=== PATIENT | female | born 1970 | race Caucasian/White ===

== ENCOUNTER → 2021-09-26 08:33 | Outpatient (POV) | payer OTHER, SELFPAY | PROVIDERS: Visit Provider Dermatology | DX: Z00.00 Encounter for general adult medical examination without abnormal findings (principal) ==

== ENCOUNTER 2024-09-05 07:45 | Emergency (ER) | payer BC, SELFPAY ==
[2024-09-05 07:53] VITALS: BP 181/119; PULSE 81; RESP 20; TEMP 36.8; O2SAT 98; BMI 33.0
[2024-09-05] MEDS: diphenhydrAMINE 50MG CAPSULE 50 MG PO (08:14)
[2024-09-05] MEDS: predniSONE 20MG TAB 40 MG PO (08:14)
--- NOTE | 2024-09-05 08:19 | ED_ITS ---
Discharge Plan Disposition Patient Disposition: Home, Self-Care Prescriptions Prescriptions: New prednisone 20 mg tablet 40 mg PO BID 5 Days Qty: 20 0RF diphenhydramine HCl [Allergy (diphenhydramine)] 25 mg capsule 50 mg PO Q8H PRN (Reason: itching) Qty: 20 0RF cephalexin 500 mg capsule 500 mg PO BID 7 Days Qty: 14 0RF Referrals Follow up/Referrals: Sonal Zhong [Primary Care Provider] - See instructions Activity Restrictions/Add. Instructions Additional Instructions/Restrictions: You were seen and evaluated in the emergency department for swelling from a wasp sting. You can take 50 mg of Benadryl every 8 hours to help with itching and some swelling. You are also being sent with 5 days of steroids. Due to some redness in the area, we will also send you with a course of antibiotics. You can also take Tylenol and ibuprofen to help with pain. Follow-up with your primary care physician in 3 days if symptoms do not improve. If you develop any new or worsening symptoms, such as shortness of breath, vomiting, diarrhea or shortness of breath, this may be a sign of a severe allergic reaction. Call 911 immediately and come to the emergency department. Clinical Impressions Clinical Impression: Localized swelling on right hand, Accidental wasp sting, Cellulitis of hand Print Language Print Language: Salvadorean Discharge ED Provider: Naresh Qiu Adult HPI General Chief complaint: Extremity Injury, Upper Stated complaint: swelling R hand-Wasp sting-09/04 1000 Time Seen by Provider: 09/05/24 07:54 Mode of Arrival: Ambulatory Source of Information: Patient Description of Symptoms (Recalled from ER Triage Doc. by RN): pt was stung by wasp yesterday on right hand and now entire hand and wirst is swollen red and tender to touch and is going up the forearm History of Present Illness HPI narrative: Amy Pressley is a 54-year-old female with no significant past medical history who presents to the emergency department for complaints of right hand swelling after a wasp sting. Patient states that yesterday she was attempting to open a window when a wasp stung her right second finger. Since then, she has had pain and swelling in her right hand that is extending up her forearm as of this morning. She states that she took 1 dose of Benadryl yesterday due to itching but it did not relieve her symptoms. She has not had any shortness of breath or vomiting. She states that she had a wasp sting in the past but did not swell up this severe. She reports some redness to the hand as well as extending up her forearm slightly. Related Data Previous Rx's ?Medication ?Instructions ?Recorded cephalexin 500 mg capsule 500 mg PO BID 7 days #14 caps 09/05/24 diphenhydramine HCl 25 mg capsule 50 mg (2 x 25 mg) PO Q8H PRN 09/05/24 (Allergy (diphenhydramine)) itching #20 caps prednisone 20 mg tablet 40 mg (2 x 20 mg) PO BID 5 days 09/05/24 #20 tabs Allergies Allergy/AdvReac Type Severity Reaction Status Date / Time No Known Allergies Allergy Verified 09/05/24 08:03 [facility] Disclaimer: The information contained in this section may have been updated after the patient was seen, as this information can be updated by other users. Social History Smoking Status: Never smoker alcohol intake: never current occupational status: other Travel in the last 8 weeks: None ROS Obtained: Yes Systems reviewed as appropriate & no additional complaints except as documented Physical Exam General General appearance: alert and in no apparent distress Head Head exam: atraumatic Eye Eye exam: Present normal appearance ENT ENT exam: Present normal external ear exam Neck Neck exam: Present full ROM Chest Chest inspection: Present symmetric chest wall rise Respiratory Respiratory exam: Present normal lung sounds bilaterally; Absent respiratory distress Cardiovascular Cardiovascular exam: Present regular rate and normal rhythm Abdominal Exam Abdominal exam: Present soft; Absent tenderness or guarding Extremities Exam Extremities exam: Present normal inspection Back Exam Back exam: Present normal inspection Neurological Exam Neurological exam: Present alert and oriented X3 Psychiatric Psychiatric exam: Present normal affect Skin Skin exam: Present warm, dry, rash and other (Diffuse swelling to the right hand and extends up to the mid forearm. Small puncture wound over the dorsum of the right second finger. A 2+ radial pulse. Sensation intact throughout. Full range of motion of the second digit with flexion and extension. Some mild erythema at the sting site that e) Medical Decision Making Medical Records Screening: Per USPSTF and CDC recommendations, given the prevalence of disease in our region, it is our hospital?s policy to screen for HIV and viral Hepatitis for all patients aged 18 and over and those with ongoing risk factors. Chucho Inquiry Pt receiving controlled substance: No Vital Signs: 09/05/24 07:53 Temperature 98.2 F Temperature Source Oral Pulse Rate [Left Radial] 81 Respiratory Rate 20 Blood Pressure [Right Arm] 181/119 H Blood Pressure Mean [Right Arm] 139 02 Sat by Pulse Oximetry 98 Oxygen Delivery Method Room Air Orders (Tests/Meds): ED MEDICATIONS Generic Name Dose Route Start Last Admin Trade Name Real PRN Reason Stop Dose Admin Diphenhydramine HCl 50 mg 09/05/24 08:01 09/05/24 08:14 Diphenhydramine 50mg Capsule PO 09/05/24 08:02 50 mg ONCE ONE Administration Prednisone 40 mg 09/05/24 08:01 09/05/24 08:14 Prednisone 20mg Tab PO 09/05/24 08:02 40 mg ONCE ONE Administration Medical Decision Narrative: Amy Pressley is a 54-year-old female with no significant past medical history who presents to the emergency department for complaints of pain and swelling and redness to her right hand after a wasp sting yesterday. She states that the swelling is extending up her forearm since it began. She does not have any other symptoms, such as shortness of breath or vomiting or diarrhea I does not meet criteria for anaphylaxis. On arrival, patient is hypertensive with blood pressure 181/119, heart rate within normal limits, breathing comfortably on room air with oxygen saturation at 98% SpO2. Afebrile. Physical exam, stated above, revealed swelling diffusely to the right hand with a small puncture wound over the dorsum of the right second digit. The swelling extends up to the mid forearm. There is some redness around the sting site that extends up the forearm slightly. She has full range of motion of her fingers and no point tenderness. No evidence of flexor tenosynovitis on physical exam. Piyush hansen has 2+ radial pulses. She does not have any wheezing or shortness of breath. No other rashes are appreciated. Differential diagnosis includes, but is not limited to: Localized allergic reaction, lymphedema, histamine reaction, cellulitis, low concern for anaphylaxis given patient does not have any other symptoms other than localized swelling and itching. Lab work was considered, however patient symptomatology is most consistent with an allergic local reaction and lab work would not change ED management. Will administer oral Benadryl and prednisone here. Will discharge on a course of oral prednisone as well as 50 mg of oral Benadryl every 8 hours at home. Given slight redness in the area, will also discharge with course of Keflex out of an abundance of caution. She was given return precautions to return to the emergency department if there is any evidence of anaphylaxis, such as shortness of breath, vomiting or diarrhea. She was also directed to follow-up with her primary care physician. All questions were answered. She demonstrated understanding and was in agreement this plan. She was then discharged from the emergency department in stable condition. Critical Care Critical Care Time Critical Care Time: No
[2024-09-05 08:30] VITALS: BP 144/100; PULSE 78; RESP 20; TEMP 36.7; O2SAT 98
== END 2024-09-05 08:33 | disposition home or self-care (01) ==
PROVIDERS: Emergency Provider Student in an Organized Health Care Education/Training Program; PCP Nurse Practitioner Family
DX: L03.113 Cellulitis of right upper limb (principal); R22.31 Localized swelling, mass and lump, right upper limb; S60.561A Insect bite (nonvenomous) of right hand, initial encounter; W57.XXXA Bitten or stung by nonvenomous insect and other nonvenomous arthropods, initial encounter
CPT/HCPCS: 99283

== ENCOUNTER 2024-11-23 16:42 | Outpatient (CLI) | payer BC, SELFPAY ==
--- OUTSIDE RECORDS SUMMARY | 2024-09-24 07:48 | XMS_ITS | Encounter Summary ---
Author Organization Healthcare Address [address] [place] [address] Care Team Providers Care Industrial Gas Serv[employer] Supervisor Name Role Phone Sonal Zhong APRN Primary Care Provider [phone] Encounter Details Date Type Department Care Team (Latest Contact Info) Description 09/24/2024 7:48 AM EDT - 09/24/2024 11:59 PM EDT Hospital Encounter [facility] [address] [id number] Encounter for screening mammogram for malignant neoplasm of breast Discharge Disposition: Home or Self Care Social History Tobacco Use Types Packs/Day Years Used Date Smoking Tobacco: Never Passive Smoke Exposure: Never Smokeless Tobacco: Never Alcohol Use Standard Drinks/Week Comments Not Currently 0 (1 standard drink = 0.6 oz pur e alcohol) Humiliation, Afraid, Rape, and Kick questionnair e Answer Date Recorded Within the last year, have y ou been afraid of your partner or ex-partner? No 09/02/2024 Within the last year, have y ou been humiliated or emotionally abused in other ways by your partner or ex-partner? No Within the last year, have y ou been kicked, hit, slapped, or otherwise physically hurt by your partner or ex-partner? No 09/02/2024 Within the last year, have y ou been raped or forced to have any kind of sexual activity by your partner or ex-partner? No 09/02/2024 Social Connection and Isolation Panel Answer Date Recorded In a typical week, how many times do you talk on the phone with family, friends, or neighbors? More than three times a week 02/17/2021 How often do you get togethe r with friends or relatives? Never 02/17/2021 How often do you attend chur ch or anabaptist services? 1 to 4 times per year 02/17/2021 Do you belong to any clubs o r organizations such as jainism groups, unions, fraternal or athletic groups, or school groups? No 02/17/2021 How often do you attend meet ings of the clubs or organizations you belong to? Never 02/17/2021 Are you , , di vorced, , never , or living with a partner? 02/17/2021 AUDIT-C Answer Date Recorded Q1: How often do you have a drink containing alc ohol? Monthly or less 02/17/2021 Q2: How many drinks containi ng alcohol do you have on a typical day when you are drinking? 1 or 2 02/17/2021 Q3: How often do you have si x or more drinks on one occasion? Never 02/17/2021 Overall Financial Resource Strain (CARDIA) Answe r Date Recorded How hard is it for you to pa y for the very basics like food, housing, medical care, and heating? Not hard at all 02/17/2021 PHQ-2 Answer Date Recorded Patient Health Questionnaire-2 Score 0 09/02/2024 [facility] Occupational Stress Questionnaire Answer Date Recorded Do you feel stress - tense, restless, nervous, or anxious, or unable to sleep at night because your mind is troubled all the time - these days? Not at all 02/17/2021 Exercise Vital Sign Answer Date Recorde d On average, how many days pe r week do you engage in moderate to strenuous exercise (like a brisk walk)? 4 days 02/17/2021 On average, how many minutes do you engage in exercise at this level? 20 min 02/17/2021 Hunger Vital Sign Answer Date Recorded Within the past 12 months, y ou worried that your food would run out before you got the money to buy more. Never true 09/03/19 25 Within the past 12 months, t he food you bought just didn't last and you didn't have money to get more. Never true 09/02/2024 PRAPARE - Transportation Answer Date Re corded In the past 12 months, has l ack of transportation kept you from medical appointments or from getting medications? No 08/18 In the past 12 months, has l ack of transportation kept you from meetings, work, or from getting things needed for daily living? No 09/02/2024 Housing Stability Vital Sign Answer Jignesh e Recorded In the last 12 months, was t here a time when you were not able to pay the mortgage or rent on time? No 06/11/2023 In the last 12 months, how many places have you lived? 1 06/11/2023 In the last 12 months, was t here a time when you did not have a steady place to sleep or slept in a long term (including now)? No 06/11/2023 PHQ-9 Answer Date Recorded Patient Health Questionnaire-9 Score 0 09/02/2024 Housing Stability Vital Sign Answer Jignesh e Recorded In the last 12 months, was t here a time when you were not able to pay the mortgage or rent on time? No 09/02/2024 In the past 12 months, how m any times have you moved where you were living? 0 09/02/2024 At any time in the past 12 m [facility], were you homeless or living in a long term (including now)? No 09/02/2024 Utilities Answer Date Recorded In the past 12 months has th e [employer], gas, oil, or water company threatened to shut off services in your home? No 09/02/2024 PHQ-2A Answer Date Recorded Patient Health Questionnaire-2 Score 0 12/24/2022 Comments No Sex and Gender Information Value Date Recorded Sex Assigned at Female 04/25/2021 8:27 AM EST Legal Sex Female 6:35 PM EDT Gender Identity Female 04/25/2021 8:27 AM EST Sexual Orientation Straight 04/25/2021 8: 27 AM EST documented as of this encounter Medications at Time of Discharge albuterol 108 (90 Base) MCG/ACT inhalerIndications :Mild intermittent asthma without complication Inhale 1 puff every 4 (four) hours as needed for wheezing or shortness of breath. 18 g 11 09/02/2024 fluticasone-salmet inocente (Advair Diskus) 100-50 MCG/ACT diskus inhalerIndications :Mild intermittent asthma without complication Inhale 1 puff 2 (two) times a day. Rinse mouth with water after use to reduce aftertaste and incidence of candidiasis. Do not swallow. 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 90 tablet 3 02/04/2024 documented as of this encounter Plan of Treatment Upcoming Encounters Date Type Department Care Team (Late st Contact Info) Description 02/01/2025 7:00 AM EDT Clinical Support [facility] [address] [place] [address] 02/03/2025 12:40 PM EDT Office Visit [facility] [address] [place] [address] Eva Garcia, DO [address] [facility] [address] [place] [address] 03/01/2025 8:00 AM EDT Appointment [facility] [address] [place] [address] 03/01/2025 10:10 AM EDT Office Visit [facility] [address] [place] [address] Morenita Piedra M, SURVEY SUPERINTENDENT [address] [facility] [address] [place] [address] documented as of this encounter Procedures Procedure Name Priority Date/Time Associated Diagnosis Comments MAMMOGRAPHY BREAST SCREENING TOMOSYNTHESIS BILATERAL Routine 09/24/2024 7:58 AM EDT Encounter for screening mammogram for malignant neoplasm of breast documented in this encounter Results * Mammography Breast Screening Tomosynthesis Bilateral (09/24/2024 7:58 AM EDT) Anatomical Region Laterality Modality Breast Bilateral Mammography Impressions 09/26/2024 9:32 PM EDT No mammographic evidence of malignancy. BI-RADS CATEGORY: Overall: 1 - Negative RECOMMENDATION: - Routine Screening Mammogram in 1 Year. Patient Lifetime Risk Score of Breast Malignancy: A risk score has not been calculated for this patient. This risk assessment is calculated using the Diana Risk Assessment model which may underestimate the lifetime risk of breast malignancy. COMMUNICATION: Computer-aided detection (CAD) and tomosynthesis were utilized by the radiologist in the interpretation of this examination. The results and recommendations will be sent to the patient in a printed lay language version of the imaging report. Narrative 09/26/2024 9:32 PM EDT EXAM: Mammography Breast Screening with Tomosynthesis REASON FOR EXAM: Screening Mammogram HISTORY: Patient is 54 y.o. Hormone history includes control. COMPARISON STUDIES: Compared to: 03/01/2020 Mammography Breast Diagnostic Tomosynthesis Bilateral at [facility] 05/16/2021 Mammography Breast Screening Tomosynthesis Bilateral at [facility] 07/04/2022 Mammography Breast Screening Tomosynthesis Bilateral at [facility] 08/09/2023 Mammography Breast Diagnostic Tomosynthesis Bilateral at [facility] BREAST COMPOSITION: The breasts are heterogeneously dense, which may obscure small masses. FINDINGS: There are no suspicious masses, calcifications, or areas of architectural distortion. us Sonal Zhong APRN IMG BI PROCEDURES Final Resul t documented in this encounter Visit Diagnoses Diagnosis Encounter for screening mammogram for malignant neoplasm of breast documented in this encounter Additional Health Concerns Assessment Noted Time PHQ-9 Depression Total Score: 0 09/03/19 25 7:44 AM EDT A fall risk assessment has been complete d for the patient 02/28/2024 9:13 AM EDT A Body Mass Index follow-up plan has been documented for the patient 09/02/2024 8:10 AM EDT documented as of this encounter Care Teams [employer] Supervisor Relationship Specialty Start Date End Date Sonal Zhong APRN Formerly named [facility] [place] [address] PCP - General Family Medicine 08/29/23 documented as of this encounter
--- OUTSIDE RECORDS SUMMARY | 2024-11-24 07:16 | XMS_ITS | Clinical Summary ---
Author Organization [facility] Address [address] [place] [address] Phone Care Team Providers Care Hem Inspector Name Role Phone Unavailable Primary Care Provider Unavailabl e Allergies No known active allergies Medications albuterol (PROAIR HFA) 90 mcg/actuation Inhl HFA Aerosol InhalerIndications :Asthma, mild intermittent, uncomplicated Inhale 2 Puffs into the lungs every 4 hours as needed. for wheezing 9 g 3 5 Active levothyroxine (SYNTHROID) 150 mcg Oral TabletIndications: Hypothyroidism (acquired) Take 1 Tab by mouth daily. 90 Tab 3 7 Active Cholecalciferol, Vitamin D3, (VITAMIN D3) 5,000 unit Oral Tablet Take by mouth. Reported on 10/19/2016 Active ADVAIR DISKUS 100-50 mcg/dose Inhl Disk with Device INHALE ONE DOSE BY MOUTH ONCE DAILY 60 Each 7 Active ferrous sulfate 325 mg (65 mg iron) Oral Tablet Take 1 Tab by mouth daily. 30 Tab 4 7 Active Active Problems Problem Noted Date Diagnosed Date Alcohol screening 08/06/2016 Overview (08/06/2016): 08/06/16 Alcohol Screening Do you drink? yes Drinks per day? A couple of times per year Most drinks at one sitting? 2 CAGE Ever thought about cutting back? no Ever get annoyed about others asking about your drinking? no Ever feel guilty about your drinking? no Ever need an eye superintendent factory in the morning? no Screening for depression 08/06/2016 Overview (08/06/2016): 08/06/16 Depression Screening: In the past two weeks, how often have you felt down, depressed, or hopeless? None Have you felt little interest or pleasure in doing things? no Mild persistent asthma with acute exacerbation 0 08/06/2016 Overview (08/06/2016): 08/06/16 Usually stable on Advair. Increased use of albuterol and symptoms over past 2 weeks. Iron deficiency 08/06/2016 Health care maintenance 07/20/2015 Overview (08/06/2016): 08/06/16 Preventative Health Measures Communication issues identified? no Depression Screening: In the past two weeks, how often have you felt down, depressed, or hopeless? None Have you felt little interest or pleasure in doing things? no Fall Risk Screening: Have you had 2 or more falls in the past year or any fall with injuries within the past year? no Tobacco Status - (goals: no tobacco) Does patient currenty use tobacco products? History Smoking status Never Smoker Smokeless tobacco Never Used Counseling given: Not Answered Immunizations - (goals: yearly flu shot, one pneumovax (with booster in 5 years if started before age 65), zostavax 60 and over, Tdap/Tetanus every 10 years) Immunization History Administered Date(s) Administered Pneumococcal Conjugate 7 Valent 05/20/2002 Tdap 05/08/2007 Health Maintenance Health Maintenance Topic Date Due Pneumococcal Vaccine (Medium Risk) (1) 07/19/2016 (Originally 1988) Annual Wellness Exam 07/19/2016 Cervical Cancer Screening 07/19/2018 Influenza Vaccine Addressed Patient Care Team: Nader Garcia MD as PCP - General Patient Self Management - Dietary Compliance compliant most of the time Medication Compliance - compliant most of the time Self Management tools - None Self Management ability - good Willingness to adopt healthy behaviors - good Understanding of current medications - good Exercise - elliptical every day. Amy Pressley has set the following self management goal: improved diet, increased exercise, weight control Readiness to change: Amy L Brinkdoepke is ready to change. Patient Barriers: none Patient Care Team: Nader Garcia MD as PCP - General Encounter for dietary counseling and surveillanc e 07/20/2015 Exercise counseling 07/20/2015 Hypothyroidism (acquired) 07/20/2015 Overview (08/06/2016): 08/06/16 Hypothyroid: Denies constipation, diarrhea, palpitations, depression, no skin or hair changes. AR (allergic rhinitis) Overview (08/06/2016): 08/06/16 Stable with otc antihistamine Resolved Problems Problem Noted Date Diagnosed Date Resolved Date Fatigue 07/20/2015 08/06/2016 Immunizations Immunization Administration Dates Next Due Influenza Vaccine, Unspecified Formulation 02/25 LAST MANUFACTURED 2010-Pneumococcal Conjugate 7 Valent 05/20/2002 Tdap 05/08/2007 Surgical History Surgery Date Site/Laterality Comments URETER STENT PLACEMENT HUMERUS FRACTURE SURGERY 10/22/2016 Arm Upper/Left LEFT DISTAL HUMERUS OPEN REDUCTION INTERNAL FIXATION ULNAR NERVE RELEASE OPEN REDUCTION INTERNAL FIXATION ULNA ULNAR OSTEOTOMY; Surgeon: Sulma Sullivan MD; Location: [facility] [place] [facility]; Service: Orthopedics Medical devices from this surgery are in the Medical Devices section. ELBOW SURGERY 10/22/2016 Left Surgeon: Sulma Sullivan MD; Location: [facility] [place] [facility]; Service: Orthopedics Medical devices from this surgery are in the Medical Devices section. ELBOW FRACTURE SURGERY 10/22/2016 Left Surgeon: Sulma Sullivan MD; Location: [facility] [place] [facility]; Service: Orthopedics Medical devices from this surgery are in the Medical Devices section. Medical History Medical History Date Comments Allergy Hypothyroidism Asthma AR (allergic rhinitis) Dyslipidemia Migraines Ureteropelvic junction obstruction last stent 05/2009 Anesthesia complication extremel y Cold after Family History Medical History Relation Name Comments Cancer Father Small cell carc inoma High Blood Pressure Father High Blood Pressure Mother Other Paternal Grandmother COPD Anesth Problems Sister violent mean High Blood Pressure Sister Breast Cancer Neg Hx Colon Cancer Neg Hx Relation Name Status Comments Father Mother Paternal Grandmother Sister Social History Tobacco Use Types Packs/Day Years Used Date Smoking Tobacco: Never Smokeless Tobacco: Never Alcohol Use Standard Drinks/Week Comments No 0 (1 standard drink = 0.6 oz pur e alcohol) Comments No Sex and Gender Information Value Date Recorded Sex Assigned at Not on file Legal Sex Female 7:06 PM EDT Gender Identity Not on file Sexual Orientation Not on file Obstetrics History Last Filed Vital Signs Vital Sign Reading Time Taken Comments Blood Pressure 126/70 05/10/2017 4:15 PM EST Pulse 90 05/10/2017 4:15 PM EST Temperature 36.7 C (98.1 F) 05/10/2017 4:15 PM EST Respiratory Rate 16 05/10/2017 4:15 PM EST Oxygen Saturation 98% 05/10/2017 4:15 PM EST Inhaled Oxygen Concentration - - Weight 70.2 kg (154 lb 12.8 oz) 05/10/2017 4:15 PM EST Height 154.9 cm (5' 1 ) 05/10/2017 4:15 PM EST Body Mass Index 29.25 05/10/2017 4:15 PM EST Plan of Treatment Health Maintenance Due Date Last Done Comments Hepatitis B Vaccine (1 of 3 - 19+ 3-dose series) 1989 Pneumococcal Vaccine 50+ (1 of 2 - PCV) 1989 05/20/2002 HPV/Pap Cotest 2000 Breast Cancer Screening 05/22/2014 05/22/2012 Cologuard 2015 Colon Cancer Screening 2015 Colonoscopy 2015 FIT 2015 Sigmoidoscopy 2015 Virtual Colonography 2015 DTaP/TDaP/Td (2 - Td or Tdap) 05/08/2017 05/08/2007 Annual Wellness Exam 08/06/2017 08/06/2016, 07/20/2015 Cervical Cancer Screening 07/19/2018 Pap Smear 07/19/2018 07/20/2015 (Postponed), 06/20/2010 Zoster (1 of 2) 2020 COVID-19 Vaccine (2023-2 5 season) 2024 Influenza Vaccine (#1) 2025 7, 08/06/2016 (Declined), 07/20/2015 (Declined) Meningococcal B Vaccine Aged Out No l onger eligible based on patient's age to complete this topic Goals Goal Patient Goal Type Associated Problems Recent Progress Patient-Stated? Author Maintain a healthy diet, exercise regularly and maintain an ideal body weight General No Benja, Merlene E Medical Devices Implanted Type Area Soaking Pit Operator Device Identifier Shelf Expiration Date Model / Serial / Lot Washer Iii Asnis Ti 6.5-8.0 Screw - [id number] Implanted:Qty: 1 on 10/22/2016 by Odalys Sullivan MD at [facility] Left: Arm DASH:ORTHOPEDI CS [id number] / / Screw Bone Full Thread T10 3.5mm X L26mm - [id number] Implanted:Qty: 2 on 10/22/2016 by Odalys Sullivan MD at [facility] Left: Arm DASH:ORTHOPEDI CS [id number] / / Screw Bone T10 Full Thread 3.5mm X L28mm - [id number] Implanted:Qty: 1 on 10/22/2016 by Odalys Sullivan MD at [facility] Left: Arm DASH:ORTHOPEDI CS [id number] / / Substitute Graft Bone Bioactive Foam Pack Vitoss Bb 1.2cc - [id number] Implanted:Qty: 1 on 10/22/2016 by Odalys Sullivan MD at [facility] Left: Arm DASH:ORTHOPEDI CS 08/14/2018 [id number] / / [id number] Screw Cannulated Asnis Iii Ti 6.5 X 80mm Tl20mm - [id number] Implanted:Qty: 1 on 10/22/2016 by Odalys Sullivan MD at [facility] Left: Arm DASH:ORTHOPEDI CS [id number] / / Screw Atk2 Micro 20mm - [id number] Implanted:Qty: 2 on 10/22/2016 by Odalys Sullivan MD at [facility] Left: Arm ACUMED AT2-C20-S / / Plate Lateral Distal Humerus 3hole/L84mm Non-Sterile - [id number] Implanted:Qty: 1 on 10/22/2016 by Odalys Sullivan MD at [facility] Left: Arm DASH:ORTHOPEDI CS [id number] / / Plate Medial Distal Extended 4 Hole - [id number] Implanted:Qty: 1 on 10/22/2016 by Odalys Sullivan MD at [facility] Left: Arm DASH:ORTHOPEDI CS [id number] / / Screw Locking Full Thread T10 3.5mm X L34mm - [id number] Implanted:Qty: 3 on 10/22/2016 by Odalys Sullivan MD at [facility] Left: Arm DASH:ORTHOPEDI CS [id number] / / Screw Locking Full Thread 3.5mm/42mm - [id number] Implanted:Qty: 1 on 10/22/2016 by Odalys Sullivan MD at [facility] Left: Arm DASH:ORTHOPEDI CS [id number] / / Screw Bone Full Thread T10 3.5mm X L20mm - [id number] Implanted:Qty: 3 on 10/22/2016 by Odalys Sullivan MD at [facility] Left: Arm DASH:ORTHOPEDI CS [id number] / / Screw Bone Full Thread T10 3.5mm X L24mm - [id number] Implanted:Qty: 2 on 10/22/2016 by Odalys Sullivan MD at [facility] Left: Arm DASH:ORTHOPEDI CS [id number] / / Procedures Procedure Name Priority Date/Time Associated Diagnosis Comments MM MOBILE MAMMO DIGITAL SCREEN W CAD ANTONIO Routine 05/22/2012 1:13 PM EST Other screening mammogram HM PAP SMEAR Routine 06/20/2010 from Last 3 Months or Most Recently Relevant to Health Maintenance Results * MM MOBILE MAMMO DIGITAL SCREEN W CAD ANTONIO (05/22/2012 1:13 PM EST) Anatomical Region Laterality Modality Breast Mammography 05/23/2012 9:05 AM EST Impressions 05/23/2012 11:30 AM EST : No radiographic evidence of malignancy ([id number]) ~ RECOMMENDATION: Routine screening mammogram in 1 year. ~ * The patient with a palpable abnormality, unexplained by breast imaging, should be managed on clinical basis by the attending physician. * Breast imaging has a false negative rate of 15%. * The patient was notified by mail of the results of this examination. *The patient's information was entered into a reminder system with a target due date for the next mammogram. The mammogram was reviewed by a Radiologist and CAD. Narrative 05/23/2012 11:30 AM EST Procedure:MM MOBILE MAMMO DIGITAL SCREEN W CAD ANTONIO ~ Reason for exam: screening (asymptomatic). ~ MM MOBILE MAMMO DIGITAL SCREEN W CAD ANTONIO Bilateral CC and MLO view(s) were taken. The breast tissue is heterogeneously dense. This may lower the sensitivity of mammography. ~ Procedure Note Carlos Bowen MD - 05/23/2012 Procedure:MM MOBILE MAMMO DIGITAL SCREEN W CAD ANTONIO ~ Reason for exam: screening (asymptomatic). ~ MM MOBILE MAMMO DIGITAL SCREEN W CAD ANTONIO Bilateral CC and MLO view(s) were taken. The breast tissue is heterogeneously dense. This may lower thesensitivity of mammography. ~ IMPRESSION: No radiographic evidence of malignancy ([id number]) ~ RECOMMENDATION: Routine screening mammogram in 1 year. ~ * The patient with a palpable abnormality, unexplained by breast imaging, should be managed on clinical basis by the attending physician. * Breast imaging has a false negative rate of 15%. * The patient was notified by mail of the results of this examination. *The patient's information was entered into a reminder system with atarget due date for the next mammogram. The mammogram was reviewed by a Radiologist and CAD. Junior Ordonez IM MAMMOGRAPHY ORDERABLES Fi nal Result * HM PAP SMEAR (06/20/2010) 06/20/2010 Gloria Noriega MA - 06/20/2010 WNL Historical Provider HEALTH MAINTENANCE Final Res ult from Last 3 Months or Most Recently Relevant to Health Maintenance Insurance [facility] CHOICE PLUS [id number] CHOICE PLUS * Guarantor: Amy Pressley Account Type Relation to Patient Date of Phone Billing Address [place] Personal Family Self Advance Directives For more information, please contact: [phone] * Full Code (Latest Code Status on File) Date Activated Date Inactivated Comments 10/22/2016 9:59 PM 10/23/2016 7:29 PM
--- OUTSIDE RECORDS SUMMARY | 2024-11-24 07:16 | XMS_ITS | Clinical Summary ---
Author Organization [facility] Address [address] [place] [address] Care Team Providers Care Hide Mill Worker Name Role Phone Unavailable Primary Care Provider Unavailabl e Social History Tobacco Use Types Packs/Day Years Used Date Smoking Tobacco: Never Assessed Comments Unknown Sex and Gender Information Value Date Recorded Sex Assigned at Not on file Legal Sex Female 4:40 PM EST Gender Identity Not on file Sexual Orientation Not on file Plan of Treatment Not on file
--- OUTSIDE RECORDS SUMMARY | 2024-11-24 07:16 | XMS_ITS | Clinical Summary ---
Author Organization [facility] Address [address] [place] [address] Care Team Providers Care Spool Carrier Name Role Phone Nader Escalera DO Primary Care Provider [phone] Social History Tobacco Use Types Packs/Day Years Used Date Smoking Tobacco: Never Assessed Comments Unknown Sex and Gender Information Value Date Recorded Sex Assigned at Not on file Legal Sex Female 5:19 PM EST Gender Identity Not on file Sexual Orientation Not on file Plan of Treatment Not on file Care Teams Spool Carrier Relationship Specialty Start Date End Date Nader Escalera DO [address] [address] PCP - General 06/06/09
--- OUTSIDE RECORDS SUMMARY | 2024-11-24 07:16 | XMS_ITS | Encounter Summary ---
Author Organization Healthcare Address [address] [place] [address] Care Team Providers Care Supervisor Claims Name Role Phone Sonal Zhong APRN Primary Care Provider [phone] Encounter Details Date Type Department Care Team (Late st Contact Info) Description 10/23/2024 Lab Requisition [facility] [address] [place] [address] Babar Goodwin MD [address] [place] [address] Encounter for screening for malignant neoplasm of colon Social History Tobacco Use Types Packs/Day Years [...] often do you attend chur ch or orthodoxy services? 1 to 4 times per year 02/17/2021 Do you belong to any clubs o r organizations such as anglican groups, unions, fraternal or athletic groups, or [...] Recorded Patient Health Questionnaire-2 Score 0 09/02/2024 [facility] - Occupational Stress Questionnaire Answer Date [...] place to sleep or slept in a assisted (including now)? No 06/11/2023 PHQ-9 Answer Date [...] any time in the past 12 m [facility], were you homeless or living in a assisted (including now)? No 09/02/2024 Utilities Answer Date Recorded In the past 12 months has th e electric, gas, oil, or water company threatened to [...] AM EST documented as of this encounter Plan of Treatment Upcoming Encounters Date Type Department Care Team (Late st Contact Info) Description 02/01/2025 7:00 AM EDT Clinical Support [facility] [address] [place] [address] 02/03/2025 12:40 PM EDT Office Visit [facility] [address] [place] [address] Eva Garcia DO [address] [place] [id number] 03/01/2025 8:00 AM EDT Appointment [facility] [address] [place] [address] 03/01/2025 10:10 AM EDT Office Visit [facility] [address] [place] [address] Morenita Piedra M, CHECKER/STOCKER [address] [place] [address] documented as of this encounter Procedures Procedure Name Priority Date/Time Associated Diagnosis Comments SURGICAL PATHOLOGY EXAM Routine 10/23/2024 Encounter for screening for malignant neoplasm of colon documented in this encounter Results * Surgical Pathology Exam (10/23/2024) Case Report Surgical Pathology Case: [id number] Authorizing Provider: Babar Goodwin, Collected: 10/23/2024 Ordering Location: [facility] Lab Received: 10/23/2024 4868 Pathologist: Denzel Gaffney DO Specimens: A) - Ascending Colon, Ascending Colon Polyps B) - Descending Colon, Descending Colon Polyp C) - Sigmoid Colon, Sigmoid Polyps 10/26/2024 1:00 PM EDT [facility] Final Diagnosis A. LARGE INTESTINE, ASCENDING COLON, POLYPS, BIOPSY: - TUBULAR ADENOMAS (3). B. LARGE INTESTINE, DESCENDING COLON, POLYP, BIOPSY: - TUBULAR ADENOMA. C. LARGE INTESTINE, SIGMOID COLON, POLYPS, BIOPSY: - TUBULAR ADENOMA. - COLONIC MUCOSA WITH LYMPHOID AGGREGATE. 10/26/2024 1:00 PM EDT [facility] at 1300 EDT Clinical Information Z12.11 - Encounter for screening for malignant neoplasm of colon [ICD-10-CM] Colonoscopy findings: - Three 3 to 4 mm polyps in the ascending colon. - One 3 mm polyp in the descending colon. - One 6 mm polyp in the sigmoid colon. - One 2 mm polyp in the sigmoid colon. 10/26/2024 1:00 PM EDT [facility] Gross Description A. ASCENDING COLON POLYPS Received in formalin labeled a scending colon polyp , are 3 white-fairchild soft tissue fragments that range from 0.2-0.6 cm in greatest dimension. Entirely submitted in cassette A1. Cold Time: 0 Jacqueline B Pettey B. DESCENDING COLON POLYP Received in formalin labeled descending colon polyp , is 1 white-fairchild soft tissue fragment measuring 0.5 cm in greatest dimension. Entirely submitted in cassette B1. Cold Time: 0 Jacqueline B Pettey C. SIGMOID POLYPS Received in formalin labeled sigmoid polyps , are 2 pink-fairchild soft tissue fragments that range from 0.3-0.5 cm in greatest dimension. Entirely submitted in cassette C1. Cold Time: 0 Jacqueline B Pettey 10/26/2024 1:00 PM EDT [facility] Note: A resident was involved in the service. I attest I examined the relevant preparations for the specimens and confirmed the diagnosis or interpretation. 10/26/2024 1:00 PM EDT [facility] Tissue Sigmoid colon structure / Unknown 10/23/2024 10/23/2024 1:48 PM EDT Tissue specimen (specimen) Descending colon structure / Unknown 10/23/2024 10/23/2024 1:48 PM EDT Tissue specimen (specimen) Sigmoid colon structure / Unknown 10/23/2024 10/23/2024 1:48 PM EDT Babar Goodwin MD LAB PATHOLOGY ORDERABL ES Final Result [facility] [address] [place] [address] documented in this encounter Visit Diagnoses Diagnosis Encounter for screening for malignant neoplasm of colon documented in this encounter Additional Health Concerns Assessment Noted Time PHQ-9 Depression Total Score: 0 09/03/19 25 7:44 AM EDT A fall risk assessment has been complete d for the patient 02/28/2024 9:13 AM EDT A Body Mass Index follow-up plan has been documented for the patient 09/02/2024 8:10 AM EDT documented as of this encounter Care Teams Supervisor Claims Relationship Specialty Start Date End Date Sonal Zhong APRN [address] [place] [address] PCP - General Family Medicine 08/29/23 documented as of this encounter
--- OUTSIDE RECORDS SUMMARY | 2024-11-24 07:16 | XMS_ITS | Referral Summary ---
Author Organization [facility] Address [address] [place] [address] Care Team Providers Care Photographic Spotter Name Role Phone Unavailable Primary Care Provider Unavailabl e Social History Tobacco Use Types Packs/Day Years Used Date Smoking Tobacco: Never Assessed Comments Unknown Sex and Gender Information Value Date Recorded Sex Assigned at Not on file Legal Sex Female 10:17 PM EDT Gender Identity Not on file Sexual Orientation Not on file Plan of Treatment Not on file
--- OUTSIDE RECORDS SUMMARY | 2024-11-24 07:16 | XMS_ITS | Clinical Summary ---
Author Organization [facility] Address [address] [place] [phone] Care Team Providers Care Accounting Generalist Name Role Phone Unavailable Primary Care Provider Unavailabl e Social History Tobacco Use Types Packs/Day Years Used Date Smoking Tobacco: Never Assessed Comments Unknown Sex and Gender Information Value Date Recorded Sex Assigned at Not on file Legal Sex Female 10:17 PM EDT Gender Identity Not on file Sexual Orientation Not on file Plan of Treatment Health Maintenance Due Date Last Done Comments DTap,Tdap,and Td (1 - Tdap) 1981 Pap Screening 1991 Mammogram Screening 2010 Colonoscopy 2015 Pneumococcal 50+ (1 of 1 - PCV) 2020 Shingrix (#1) 2020 Influenza Vaccine (Season Ended) 2025 RSV Vaccine (60+ or ) (1 - 1-dose 75+ series) 2045 HPV Aged Out No longer eligi ble based on patient's age to complete this topic Meningococcal conjugate melodie nt 4 (MCV4) Aged Out No longer eligible b ased on patient's age to complete this topic RSV Immunization (<20 months) Aged Out No longer eligible based on patient's age to complete this topic
--- OUTSIDE RECORDS SUMMARY | 2024-11-24 07:16 | XMS_ITS | Encounter Summary ---
Author Organization Healthcare Address [address] [place] [address] Care Team Providers Care Financial Services Professional Name Role Phone Sonal Zhong APRN Primary Care Provider [phone] Encounter Details Date Type Department Care Team (Late st Contact Info) Description 10/27/2024 Results Follow-Up [facility] Specialties [address] [place] [address] Babar Goodwin MD [address] [place] [address] Social History Tobacco Use Types Packs/Day Years [...] often do you attend chur ch or scientology services? 1 to 4 times per year 02/17/2021 Do you belong to any clubs o r organizations such as alevism groups, unions, fraternal or athletic groups, or [...] Patient Health Questionnaire-2 Score 0 09/02/2024 [facility] - Occupational Stress Questionnaire Answer Date [...] place to sleep or slept in a halfway (including now)? No 06/11/2023 PHQ-9 Answer Date [...] any time in the past 12 m [facility], were you homeless or living in a halfway (including now)? No 09/02/2024 Utilities Answer Date [...] Description 02/01/2025 7:00 AM EDT Clinical Support [facility] [address] [place] [address] 02/03/2025 12:40 PM EDT Office Visit [facility] [address] [place] [phone] Eva Garcia DO [address] [place] [address] 03/01/2025 8:00 AM EDT Appointment [facility] [address] [place] [address] 03/01/2025 10:10 AM EDT Office Visit [facility] [address] [place] [address] Morenita Piedra APRN [address] [place] [address] documented as of this encounter Visit Diagnoses Not on filedocumented in this encounter Additional Health Concerns Assessment Noted Time PHQ-9 Depression Total Score: 0 09/03/19 25 7:44 AM EDT A fall risk assessment has been complete d for the patient 02/28/2024 9:13 AM EDT A Body Mass Index follow-up plan has been documented for the patient 09/02/2024 8:10 AM EDT documented as of this encounter Care Teams Financial Services Professional Relationship Specialty Start Date End Date Sonal Zhong, ANALYST [employer] [address] [place] [address] PCP - General Family Medicine 08/29/23 documented as of this encounter
--- OUTSIDE RECORDS SUMMARY | 2024-11-24 07:16 | XMS_ITS | Clinical Summary ---
Author Organization [facility] Address [address] [place] [address] Care Team Providers Care Alteration Hand Name Role Phone TrevinSonal rutledge Conner SIMMONS Primary Care Provider [phone] Allergies No known active allergies Medications * This document contains information received from the source organization and may not represent a complete record from that organization. 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 90 tablet 3 4 025 Active fluticasone-salm eterol (Advair Diskus) 100-50 MCG/ACT diskus inhalerIndicatio ns:Mild intermittent asthma without complication Inhale 1 puff 2 (two) times a day. Rinse mouth with water after use to reduce aftertaste and incidence of candidiasis. Do not swallow. 180 each 3 5 Active albuterol 108 (90 Base) MCG/ACT inhalerIndicatio ns:Mild intermittent asthma without complication Inhale 1 puff every 4 (four) hours as needed for wheezing or shortness of breath. 18 g 11 5 Active bisacodyl (Dulcolax) 5 MG EC tablet Take all 4 tablets at 4 PM on day before colonoscopy . Do not crush, chew, or split. 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 08/06/16 Hypothyroid: Denies constipation, diarrhea, palpitations, depression, no skin or hair changes. Encounters * This document contains information received from the source organization and may not represent a complete record from that organization. Date Type Department Care Team Description 10/27/2024 Results Follow-Up [facility] Medicine Specialties [address] [place] [address] Babar Goodwin MD 10/23/2024 Lab Requisition [facility] [address] [place] [phone] Babar Goodwin MD Encounter for screening for malignant neoplasm of colon 09/24/2024 7:48 AM EDT - 09/24/2024 11:59 PM EDT Hospital Encounter [facility] [address] [place] [address] Encounter for screening mammogram for malignant neoplasm of breast Discharge Disposition: Home or Self Care 09/24/2024 Travel 09/03/2024 Results Follow-Up [facility] [address] [place], [place] [address] Sonal Zhong APRN 09/02/2024 7:40 AM EDT Office Visit [facility] [address], [place] [address] Sonal Zhong, WAFER MOUNTER Screening for colon cancer (Primary Dx); Healthcare maintenance; Adult hypothyroidism; Mild intermittent asthma without complication; Encounter for screening mammogram for malignant neoplasm of breast 09/02/2024 Travel from Last 3 Months Immunizations Immunization Administration Dates Next Due Hep A, Unspecified 07/15/2018,01/06/2018 Influenza, Unspecified 02/05/2019,2017,02/26/2017,2016 Influenza, injectable, quadr ivalent, preservative free 03/12/2023,03/01/2022,02/21/2021 Influenza, seasonal, injecta ble, preservative free 02/07/2024 MMR 07/26/2017,06/28/2017 Pneumococcal Conjugate PCV 7 05/20/2002 Tdap 02/16/2017, 7,01/17/2017,2006 Family History Medical History Relation Name Comments Conversions - Other Father Small ce ll carcinoma Hypertension Mother Hypothyroidism Mother Hypertension Sister Relation Name Status Comments Father Mother Sister Social History Tobacco Use Types Packs/Day Years Used Date Smoking Tobacco: Never Passive Smoke Exposure: Never Smokeless Tobacco: Never Tobacco Cessation:Counseling Given: Not Answered Alcohol Use Standard Drinks/Week Comments Not Currently [...] 02/17/2021 How often do you attend chur or sabianism services? 1 to 4 times per year 02/17/2021 Do you belong to any clubs o r organizations such as bahai groups, unions, fraternal or athletic groups, or [...] Recorded Patient Health Questionnaire-2 Score 0 09/02/2024 [facility] - Occupational Stress Questionnaire Answer Date Recorded [...] place to sleep or slept in a half-way (including now)? No 06/11/2023 PHQ-9 Answer Date [...] any time in the past 12 m [facility], were you homeless or living in a half-way (including now)? No 09/02/2024 Utilities Answer Date Recorded In the past 12 months has e [employer], gas, oil, or water [employer] threatened to shut off services in your home? No 09/02/2024 PHQ-2A Answer Date Recorded Patient Health Questionnaire-2 Score 0 12/24/2022 Comments No Sex and Gender Information Value Date Recorded Sex Assigned at Female 04/25/2021 8:27 AM EST Legal Sex Female 6:35 PM EDT Gender Identity Female 04/25/2021 8:27 AM EST Sexual Orientation Straight 04/25/2021 8: 27 AM EST Last Filed Vital Signs Vital Sign Reading Time Taken Comments Blood Pressure 118/86 09/02/2024 7:42 AM EDT Pulse 80 09/02/2024 7:42 AM EDT Temperature 37 C (98.6 F) 09/02/2024 7:42 AM EDT Respiratory Rate 14 09/02/2024 7:42 AM EDT Oxygen Saturation 95% 09/02/2024 7:42 AM EDT Inhaled Oxygen Concentration - - Weight 81 kg (178 lb 9.2 oz) 09/02/2024 7:42 AM EDT Height 154.9 cm (5' 1 ) 09/02/2024 7:42 AM EDT Body Mass Index 33.74 09/02/2024 7:42 AM EDT Plan of Treatment Upcoming Encounters Date Type Department Care Team (Late st Contact Info) Description 02/01/2025 7:00 AM EDT Clinical Support [facility] [address] [place] [address] 02/03/2025 12:40 PM EDT Office Visit [facility]idra [facility] Endocrinology [address] [place] [address] Eva Garcia, DO [address] [place] [address] 03/01/2025 8:00 AM EDT Appointment [facility] [address] [place] [address] 03/01/2025 10:10 AM EDT Office Visit [facility] [address] [place] [address] NoMorenita willis M, WAFER MOUNTER [address] [place] [address] Health Maintenance Due Date Last Done Comments [facility]-Infant/Child/Adol SDOH Screenings 1970 [facility]-Hepatitis B Vaccines (1 of 3 - 19+ 3-dose series) 1989 [facility]-Pneumococcal Vaccine: 50+ Years (1 of 2 - PCV) 1989 05/20/2002 [facility]-HPV/Cotest 2000 [facility]-Cervical Cancer Screening 06/20/2013 [facility]-Pap Smear 06/20/2013 06/20/2010 CT Colonography 2015 FIT 2015 FOBT 2015 Sigmoidoscopy 2015 [facility]-Zoster Vaccines (1 of 2) 2020 [id number] Vaccine (3 - Moderna risk series) 08/22/2021 07/25/2021, 06/27/2021 FIT-DNA 04/03/2024 04/03/2021 [facility]-Colorectal Cancer Screening 10/24/2024 [facility]-Influenza Vaccine (#1) 01/18/202502/06, 03/12/2023, 03/01/2022, Additional history exists [facility]- SDOH Screenings 03/04/2025 [facility]-Adult SDOH Screenings 03/04/2025 09/02/2024 [facility]-Depression Screening 09/02/2025 09/02/2024, 08/18 [facility]-Diabetes: Hemoglobin A1C 09/02/2025, 02/21/2022, 02/13/2021, Additional history exists [facility]-Breast Cancer Screening 09/24/2026 05/0 12/2024, 08/09/2023, 07/04/2022, Additional history exists [facility]-DTaP,Tdap,and Td Vaccines (5 - Td or Tdap) 02/16/2027 02/16/2017, 02/16/2017, 01/17/2017, Additional history exists Colonoscopy 10/23/2034 10/23/2024, 10/23/2024 [facility]-Hepatitis A Vaccines Aged Out 07/15/2018, 12/19 No longer eligible based on patient's age to complete this topic [facility]-HIV Screening Completed 03/03/2021 [facility]-Hepatitis C Screening Completed 03/03/2021 [facility]-Obesity Intervention Completed 025, 09/02/2024, 09/02/2024, Additional history exists HPV Vaccines Aged Out No longer eligi ble based on patient's age to complete this topic [facility]-HIB Vaccines Aged Out No longer e ligible based on patient's age to complete this topic [facility]-IPV Vaccines Aged Out No longer e ligible based on patient's age to complete this topic [facility]-Rotavirus Vaccines Aged Out No lo nger eligible based on patient's age to complete this topic Procedures Procedure Name Priority Date/Time Associated Diagnosis Comments COLONOSCOPY 10/23/2024 11:19 AM EDT SURGICAL PATHOLOGY EXAM Routine 10/23/2024 Encounter for screening for malignant neoplasm of colon MAMMOGRAPHY BREAST SCREENING TOMOSYNTHESIS BILATERAL Routine 09/24/2024 7:58 AM EDT Encounter for screening mammogram for malignant neoplasm of breast VITAMIN B12, SERUM Routine 09/02/2024 8: 20 AM EDT Healthcare maintenance VITAMIN D 25 HYDROXY Routine 09/02/2024 8:20 AM EDT Healthcare maintenance HEMOGLOBIN A1C Routine 09/02/2024 8:20 AM EDT Healthcare maintenance LIPID PROFILE, PLASMA Routine 09/02/2024 8:20 AM EDT Healthcare maintenance CBC WITH AUTO DIFFERENTIAL Routine 09/02/2024 8:20 AM EDT Healthcare maintenance COMPREHENSIVE METABOLIC PANEL, PLASMA Routine 09/02/2024 8:20 AM EDT Healthcare maintenance LAB COLOGUARD COLON CANCER SCREEN Routine 04/03/2021 Encounter for screening for malignant neoplasm of colon HEPATITIS C ANTIBODY - ED W/REFLEX TO HCV QUANT PCR STAT 03/03/2021 9:08 AM EDT HIV 1/2 ANTIBODY/ANTIGEN SCREEN WITH REFLEX TO HIV I/II DIFFERENTIATION STAT 03/03/2021 9:08 AM EDT from Last 3 Months or Most Recently Relevant to Health Maintenance Results * Colonoscopy (10/23/2024 11:19 AM EDT) Anatomical Region Laterality Modality Endoscopy 10/23/2024 10:5 1 AM EDT Impressions 10/23/2024 11:19 AM EDT Please see media tab for the result. Information added by interface. Narrative Procedure Note Babar Goodwin MD - 10/23/2024 IMPRESSION: Please see media tab for the result. Information added by interface. us External Provider GI PROCEDURE ORDERABLES Final Result * Surgical Pathology Exam (10/23/2024) Case Report Surgical Pathology Case: [id number] Authorizing Provider: Babar Goodwin, Collected: 10/23/2024 Ordering Location: [facility] Lab Received: 10/23/2024 1348 Pathologist: Denzel Gaffney DO Specimens: A) - Ascending Colon, Ascending Colon Polyps B) - Descending Colon, Descending Colon Polyp C) - Sigmoid Colon, Sigmoid Polyps 10/26/2024 1:00 PM EDT [facility] Final Diagnosis A. LARGE INTESTINE, ASCENDING COLON, POLYPS, BIOPSY: - TUBULAR ADENOMAS (3). B. LARGE INTESTINE, DESCENDING COLON, POLYP, BIOPSY: - TUBULAR ADENOMA. C. LARGE INTESTINE, SIGMOID COLON, POLYPS, BIOPSY: - TUBULAR ADENOMA. - COLONIC MUCOSA WITH LYMPHOID AGGREGATE. 10/26/2024 1:00 PM EDT [facility] at 1300 EDT Clinical Information Z12.11 - Encounter for screening for malignant neoplasm of colon [ICD-10-CM] Colonoscopy findings: - Three 3 to 4 mm polyps in the ascending colon. - One 3 mm polyp in the descending colon. - One 6 mm polyp in the sigmoid colon. - One 2 mm polyp in the sigmoid colon. 10/26/2024 1:00 PM EDT [facility] Gross Description A. ASCENDING COLON POLYPS [...] Jacqueline B Pettey 10/26/2024 1:00 PM EDT [facility] Note: A resident was involved in the service. I attest I examined the relevant preparations for the specimens and confirmed the diagnosis or interpretation. 10/26/2024 1:00 PM EDT [facility] Tissue Sigmoid colon structure / Unknown 10/23/2024 10/23/2024 1:48 PM EDT Tissue specimen (specimen) Descending colon structure / Unknown 10/23/2024 10/23/2024 1:48 PM EDT Tissue specimen (specimen) Sigmoid colon structure / Unknown 10/23/2024 10/23/2024 1:48 PM EDT [facility] Luis Goodwin MD LAB PATHOLOGY ORDERABL ES Final Result [facility] [address] [place] [address] * Mammography Breast Screening Tomosynthesis Bilateral (09/24/2024 [...] 03/01/2020 Mammography Breast Diagnostic Tomosynthesis Bilateral at [facility] 05/16/2021 Mammography Breast Screening Tomosynthesis Bilateral at [facility] 07/04/2022 Mammography Breast Screening Tomosynthesis Bilateral at [facility] 08/09/2023 Mammography Breast Diagnostic Tomosynthesis Bilateral at [facility] BREAST COMPOSITION: The breasts are heterogeneously dense, which may obscure small masses. FINDINGS: There are no suspicious masses, calcifications, or areas of architectural distortion. us Sonal Zhong APRN IMG BI PROCEDURES Final Resul t * (ABNORMAL) Vitamin D 25 Hydroxy (09/02/2024 8:20 AM EDT) Vitamin D 25 Hydroxy 16.0(L) 20.0 - 80.0 ng/mL 09/02/2024 2:24 PM EDT [facility] Blood Venous blood specimen / Unknown Venipuncture / Unknown 09/02/2024 8:20 AM EDT 09/02/2024 8:20 AM EDT Narrative [facility] - 09/02/2024 2:24 PM EDT Testing performed on [facility], standardized against NIST SRM 2972. When testing samples from patients whose predominant form of vitamin D is vitamin D2, such as patients receiving vitamin D2 supplementation, results that are subtherapeutic should be confirmed with another method, such as LC-MS/MS, before being used for patient management. Vitamin D, 25-Hydroxy reference range, age 18 years and up: Deficiency: <12 ng/mL Insufficiency: 12 to 19 ng/mL Sufficiency: 20 to 80 ng/mL Possible toxicity: >100 ng/mL us Sonal Zhong APRN LAB BLOOD ORDERABLES Final Re sult [facility] [address] [place] [address] * (ABNORMAL) CBC and Differential (09/02/2024 8:20 AM EDT) WBC Count 7.03 3.70 - 10.30 10*3/uL LAB HEMATOLOGY METHOD 09/02/2024 1:54 PM EDT [facility] RBC Count 4.95 3.90 - 5.20 10*6/uL LAB HEMATOLOGY METHOD 09/02/2024 1:54 PM EDT [facility] HGB 13.0 11.2 - 15.7 g/dL LAB HEMATOLOGY METHOD 09/02/2024 1:54 PM EDT [facility] HCT 42.9 34.0 - 45.0 % LAB HEMATOLOGY METHOD 09/02/2024 1:54 PM EDT [facility] Platelet Count 381(H) 155 - 369 10*3/uL LAB HEMATOLOGY METHOD 09/02/2024 1:54 PM EDT [facility] MCV 87 79 - 98 fL LAB HEMATOLOGY METHOD 09/02/2024 1:54 PM EDT [facility] MCH 26.3 26.0 - 32.0 pg LAB HEMATOLOGY METHOD 09/02/2024 1:54 PM EDT [facility] MCHC 30.3(L) 30.7 - 35.5 g/dL LAB HEMATOLOGY METHOD 09/02/2024 1:54 PM EDT [facility] RDW 13.5 11.5 - 14.5 % LAB HEMATOLOGY METHOD 09/02/2024 1:54 PM EDT [facility] MPV 8.5(L) 8.8 - 12.5 fL LAB HEMATOLOGY METHOD 09/02/2024 1:54 PM EDT [facility] nRBC 0.0 <=0.0 per 100 WBCs LAB HEMATOLOGY METHOD 09/02/2024 1:54 PM EDT [facility] Differential Type Automated LAB HEMATOLOGY METHOD 09/02/2024 1:54 PM EDT [facility] Neutrophils % 68 % LAB HEMATOLOGY METHOD 09/02/2024 1:54 PM EDT [facility] Lymphocytes % 23 % LAB HEMATOLOGY METHOD 09/02/2024 1:54 PM EDT [facility] Monocytes % 6 % LAB HEMATOLOGY METHOD 09/02/2024 1:54 PM EDT [facility] Eosinophils % 3 % LAB HEMATOLOGY METHOD 09/02/2024 1:54 PM EDT [facility] Basophils % 0 % LAB HEMATOLOGY METHOD 09/02/2024 1:54 PM EDT [facility] Immature Granulocytes % 0 % LAB HEMATOLOGY METHOD 09/02/2024 1:54 PM EDT [facility] Neutrophils Absolute 4.79 1.60 - 6.10 10*3/uL LAB HEMATOLOGY METHOD 09/02/2024 1:54 PM EDT [facility] Lymphocytes Absolute 1.59 1.20 - 3.90 10*3/uL LAB HEMATOLOGY METHOD 09/02/2024 1:54 PM EDT [facility] Monocytes Absolute 0.41 0.30 - 0.90 10*3/uL LAB HEMATOLOGY METHOD 09/02/2024 1:54 PM EDT [facility] Eosinophils Absolute 0.18 0.00 - 0.50 10*3/uL LAB HEMATOLOGY METHOD 09/02/2024 1:54 PM EDT [facility] Basophils Absolute 0.03 0.00 - 0.10 10*3/uL LAB HEMATOLOGY METHOD 09/02/2024 1:54 PM EDT [facility] Immature Granulocytes Absolute 0.03 0.00 - 0.06 10*3/uL LAB HEMATOLOGY METHOD 09/02/2024 1:54 PM EDT [facility] Blood Venous blood specimen / Unknown Venipuncture / Unknown 09/02/2024 8:20 AM EDT 09/02/2024 8:20 AM EDT Narrative [facility] - 09/02/2024 1:54 PM EDT Therapeutic decision making should be based on absolute values, rather than percentages. us Sonal Zhong WAFER MOUNTER LAB BLOOD ORDERABLES Final Re sult [facility] [address] [place] [address] * (ABNORMAL) Hemoglobin A1c (09/02/2024 8:20 AM EDT) Hemoglobin A1c 5.7(H) <5.7 % 09/02/2024 4:24 PM EDT [facility] Blood Venous blood specimen / Unknown Venipuncture / Unknown 09/02/2024 8:20 AM EDT 09/02/2024 8:20 AM EDT Narrative [facility] - 09/02/2024 4:24 PM EDT HA1C Interpretive Data: Diagnosis of Diabetes: Diabetic > or = 6.5% Pre-diabetic 5.7 to 6.4% Non-diabetic < or = 5.6% Glycemic Targets for Type I and Type II Diabetics: Non- Adults <7.0% Adults <6.0% Children and Adolescents <7.5% Source: [place] [employer]. Standards of medical care in diabetes,2017. Diabetes Care.2017:40 (suppl 1):S1-S135. Sonal Zhong WAFER MOUNTER LAB BLOOD ORDERABLES Final Re sult Performing Organization Address [facility] Co de Phone Number [facility] [address] [place] [address] * Vitamin B12, Serum (09/02/2024 8:20 AM EDT) Vitamin B12, Serum 316 210 - 1,033 pg/mL 09/02/2024 2:09 PM EDT [facility] Blood Venous blood specimen / Unknown Venipuncture / Unknown 09/02/2024 8:20 AM EDT 09/02/2024 8:20 AM EDT Sonal Zhong WAFER MOUNTER LAB BLOOD ORDERABLES Final Re sult Performing Organization Address [facility] Co de Phone Number [facility] [address] [place] [address] * (ABNORMAL) Lipid Profile, Plasma (09/02/2024 8:20 AM EDT) Cholesterol, Plasma 252(H) <200 mg/dL 09/02/2024 2:03 PM EDT [facility] Comment: Cholesterol Reference Range (age >17 years): Desirable <200 mg/dL Borderline 200 to 239 mg/dL Undesirable >239 mg/dL HDL 61 >=50 mg/dL 09/02/2024 2:03 PM EDT [facility] Comment: HDL Cholesterol Reference Ranges (age >17 years): Female, acceptable > or = 50 mg/dL Male, acceptable > or = 40 mg/dL Triglycerides, Plasma 151(H) <150 mg/dL 09/02/2024 2:03 PM EDT [facility] Comment: Triglyceride Reference Range (age >17 years): Desirable: <150 mg/dL Borderline high: 150 to 199 mg/dL High: 200 to 499 mg/dL Very high: >499 mg/dL Increased risk of pancreatitis: >1000 mg/dL Cholesterol/HDL Ratio 4 09/02/2024 2:03 PM EDT [facility] LDL, Calculated 164(H) <100 mg/dL 2:03 PM EDT [facility] Comment: LDL Cholesterol Reference Range (age >17 years): Optimal: <100 mg/dL Near or above optimal: 100 - 129 mg/dL Borderline high: 130 - 159 mg/dL High: 160 - 189 mg/dL Very high: >189 mg/dL LDL Cholesterol Reference Range (age <18 years): Desirable: <110 mg/dL Borderline: 110 - 129 mg/dL Undesirable: >130 mg/dL LDL Cholesterol is calculated using the Monterro[place]/NIH equation. Fasting greater than or equal to 12 hours? Yes 09/02/2024 2:03 PM EDT [facility] Blood Venous blood specimen / Unknown Venipuncture / Unknown 09/02/2024 8:20 AM EDT 09/02/2024 8:20 AM EDT us Sonal Zhong WAF[employer] MOUNTER LAB BLOOD ORDERABLES Final Re sult [facility] [address] [place] [address] * (ABNORMAL) Comprehensive Metabolic Panel, Plasma (09/02/2024 8:20 AM EDT) Glucose, Plasma 94 74 - 99 mg/dL 09/02/2024 2:03 PM EDT [facility] BUN, Plasma 17 7 - 21 mg/dL 09/02/2024 2:03 PM EDT [facility] Creatinine, Plasma 1.01 0.60 - 1.10 mg/dL 09/02/2024 2:03 PM EDT [facility] BUN/Creatinine Ratio 17 09/02/2024 2:03 PM EDT [facility] Sodium, Plasma 141 136 - 145 mmol/L 09/02/2024 2:03 PM EDT [facility] Potassium, Plasma 4.0 3.6 - 4.9 mmol/L 09/02/2024 2:03 PM EDT [facility] Chloride, Plasma 104 97 - 107 mmol/L 09/02/2024 2:03 PM EDT [facility] CO2, Plasma 24 22 - 29 mmol/L 09/02/2024 2:03 PM EDT [facility] Anion Gap 13 6 - 16 mmol/L 09/02/2024 2:03 PM EDT [facility] Total Calcium, Plasma 9.4 8.9 - 10.2 mg/dL 09/02/2024 2:03 PM EDT [facility] Total Protein 7.1 6.3 - 7.9 g/dL 09/02/2024 2:03 PM EDT [facility] Albumin, Plasma 4.2 3.5 - 5.2 g/dL 09/02/2024 2:03 PM EDT [facility] AST, Plasma 27 10 - 35 U/L 09/02/2024 2:03 PM EDT [facility] ALT, Plasma 21 10 - 35 U/L 09/02/2024 2:03 PM EDT [facility] Alkaline Phosphatase, Plasma 120(H) 35 - 104 U/L 09/02/2024 2:03 PM EDT [facility] Total Bilirubin, Plasma 0.3 0.2 - 1.1 mg/dL 09/02/2024 2:03 PM EDT [facility] eGFRcr 66.3 mL/min/1.7 3m*2 09/02/2024 2:03 PM EDT [facility] Comment:Reported eGFRcr in m L/min/1.73m2 is based the CKD-EPI 2020 equation that does not use a race coefficient. Blood Venous blood specimen / Unknown Venipuncture / Unknown 09/02/2024 8:20 AM EDT 09/02/2024 8:20 AM EDT us Sonal Zhong WAF[employer] M[employer]TER LAB BLOOD ORDERABLES Final Re sult [facility] [address] [place] [address] * Cologuard?? colon cancer screening (04/03/2021) NONINV COLON CA DNA+OCC BLD SCRN STL-IMP Negative [facility] Comment:Negative NONINV COLON CA DNA+OCC BLD SCRN STL QL Negative [facility] Stool Stool specimen / Unknown 04/03/2021 Anita Hannah APRN LAB MOLECULAR DIAGNOSTICS ORDER ALEJANDRO Final Result [facility] [address] [place] [address] * HIV 1 & 2 Antibody/Antigen Screen (03/03/2021 9:08 AM EDT) HIV 1 & 2 Antibody/Anti gen Screen Nonreactive Nonreactive 03/03/2021 11:36 AM EDT [facility] Blood Venous blood specimen / Unknown Venipuncture / Unknown 03/03/2021 9:08 AM EDT 03/03/2021 9:32 AM EDT Nader Felix MD LAB BLOOD ORDERABLES Final Result Performing Organization Address City/[facility]/ZIP Co de Phone Number [facility] [address] [place] [address] * Camp Hepatitis C Antibody (03/03/2021 9:08 AM EDT) Hepatitis C Antibody Negative Negative 03/03/2021 11:36 AM EDT [facility] Blood Venous blood specimen / Unknown Venipuncture / Unknown 03/03/2021 9:08 AM EDT 03/03/2021 9:32 AM EDT Nader Felix MD LAB BLOOD ORDERABLES Final Result Performing Organization Address City/[facility]/ZIP Co de Phone Number [facility] [address] [place] [address] from Last 3 Months or Most Recently Relevant to Health Maintenance Insurance [employer] Care Teams Alteration Hand Relationship Specialty Start Date End Date Sonal Zhong APRN [facility] [place] [address] PCP - General Family Medicine 08/29/23
--- OUTSIDE RECORDS SUMMARY | 2024-11-24 07:16 | XMS_ITS | Encounter Summary ---
Author Organization Healthcare Address [address] [place] [address] Care Team Providers Care Computational Linguist Name Role Phone Sonal Zhong ELECTRICAL WIRER Primary Care Provider [phone] Encounter Details Date Type Department Care Team (Late st Contact Info) Description 09/03/2024 Results Follow-Up [facility] [address] [place] [address] Sonal Zhong APRN [address] [place] [address] Social History Tobacco Use Types Packs/Day Years [...] often do you attend chur ch or hindu services? 1 to 4 times per year 02/17/2021 Do you belong to any clubs o r organizations such as protestant groups, unions, fraternal or athletic groups, or [...] Recorded Patient Health Questionnaire-2 Score 0 09/02/2024 [facility] - Occupational Stress Questionnaire Answer Date Recorded [...] place to sleep or slept in a fpc (including now)? No 06/11/2023 PHQ-9 Answer Date [...] any time in the past 12 m [facility], were you homeless or living in a fpc (including now)? No 09/02/2024 Utilities Answer Date [...] Description 02/01/2025 7:00 AM EDT Clinical Support [facility] [address] [place] [address] 02/03/2025 12:40 PM EDT Office Visit [facility] [address] [place] [id number] Eva Garcia DO [address] [place] [address] 03/01/2025 8:00 AM EDT Appointment [facility] [address] [place] [address] 03/01/2025 10:10 AM EDT Office Visit [facility] [address] [place] [id number] Morenita Piedra APRN [address] [place] [address] documented as of this encounter [...] documented as of this encounter Care Teams Computational Linguist Relationship Specialty Start Date End Date Sonal Zhong, ELECTRICAL WIRER [address] [place] [address] PCP - General Family Medicine 08/29/23 documented as of this encounter
== END 2024-11-23 23:59 | disposition home or self-care (01) ==
LOC: LAB.DROPOF 11-24 07:15
PROVIDERS: PCP Student in an Organized Health Care Education/Training Program; Visit Provider Student in an Organized Health Care Education/Training Program
DX: R52 Pain, unspecified (principal)
CPT/HCPCS: 87635